=== PATIENT | male | born 1945 | race Caucasian/White ===

== ENCOUNTER 2016-07-06 13:14 | Observation (INO) | payer MEDICARE, OTHER ==
[2016-07-06] MEDS ORDERED: NS 1,000 ML IV ONE ×2 (13:18→14:20)
--- NOTE | 2016-07-06 13:23 | EDPRACDOC ---
- General Information Stated Complaint: ETOH,SI Time Seen by Provider: 07/06/16 13:17 Information Source: Patient, [employer] Officer Mode of Arrival: Ambulance Home Medications: Home Medications Atorvastatin [Lipitor 40 mg Tablet] 40 mg PO HS 09/13/13 Aspirin [Aspirin EC] 81 mg PO HS 08/09/15 Vitamins, [ Vitamin] 1 tab PO DAILY@1200 #30 tablet 04/30/16 Ipratropium/Albuterol Sulfate [Combivent Respimat Inhal [place]] 1 puff INH QID Citalopram (anti-depressant) [Celexa] 40 mg PO DAILY 06/13/16 Fluticasone/Vilanterol [Breo Ellipta 200-25 Mcg INH] 1 puff INH DAILY 06/13/16 CloNIDine (Antihypertensive) [Catapres] 0.1 mg PO TID #30 tab 06/24/16 Lorazepam [Ativan] 1 mg PO TID #10 tab 06/24/16 Ondansetron HCl [Zofran] 4 mg PO Q6H PRN #20 tab 06/24/16 Oxycodone Immediate Release [Oxy-Ir] 5 mg PO Q6H PRN #20 tab 06/28/16 Allergies/Adverse Reactions: Allergies Allergy/AdvReac Type Severity Reaction Status Date / Time No Known Allergies Allergy Verified 07/06/16 14:20 - History of Present Illness Onset: days HPI: PT HAS A HX OF ETOH ABUSE AND HAS BEEN HERE MANY TIMES FOR THAT. PT HAS BEEN DRINKING AGAIN AND FEELS SUICIDAL. PT WAS HERE YESTERDAY FOR HYPOTENSION. HE RECEIVED 1.5L OF IVFS AND BP IMPROVED. PT ALSO HAS BEEN NEWLY DX'D WITH LUNG CANCER AND IS NOT A SURGICAL CANDIDATE. [facility] HAS TRIED TO GET PT TO STOP DRINKING, BUT HAS BEEN UNSUCCESSFUL. Reason for Seeking Treatment: 911 Call Presents With: Reports: Depression, Suicidal Ideation Expresses: Reports: None Suicidal Plan: Reports: None Relevant History: Reports: Depression, Suicidal Attempt, Inpatient Treatment, Outpatient Treatment Medication Compliance: No Tetanus Up To Date?: Yes Able to Control Self: No Associated Signs and Symptoms: Reports: Depression, ETOH ED Past Medical History - Patient Medical History Cardiac History: Reports: Cardiac Catheterization (NORMAL ), Hypercholesterolemia. Denies: Hypertension Respiratory History: Reports: COPD, Pneumonia, Emphysema Psychological History: Reports: Depression, Anxiety, Bipolar Disorder (PER HISTORY), Substance Use Disorder (Alcoholic, INTENTIONAL OD) Systemic History: Reports: Cancer (Lung) Surgical History: Reports: Cholecystectomy (1985), Cardiac Catheterization ( NORMAL ), Tonsillectomy/Adnoidectomy - Family Medical History Reports: Cancer (FATHER-PROSTATE), Cardiac Disorders (FATHER). Denies: Hypertension, Diabetes, Stroke - Social Medical History Smoking Status: Heavy tobacco smoker (5 or more cigarettes/day or daily pipe/ cigar) Social History: Reports: Substance Use Disorder (Alcoholic, INTENTIONAL OD) ETOH: Alcoholic Substance Abuse: None Lives In: Home EDM Review of Systems - Review of Systems ROS Negative Except as Marked: Yes All systems reviewed and were negative except as marked Psychiatric: Depression, Suicidal - Physical Exam Constitutional: No apparent distress, Alert (Awake), ETOH Oriented to: Time, Person, Place Last recorded Vital Signs: Oxygen Pulse Oxygen Saturation O2 Device Oxygen Flow Rate Fraction of Inspired Oxygen ( FIO2) - HEENT Head: Normal ( normocephalic) Eye Exam: Normal (PERRL, EOMI, Sclera white) Oropharynx: Normal (Pharynx:Moist without exudate,Gums-no swelling) ENT EAC: Normal TMJ: Normal Nose: No Symptoms Reported (septum midline) Neck: Normal (FROM, trachea at midline) - Respiratory/Cardiovascular Respiratory: Normal - CTA (BBS clear to auscultation without adventitious sounds ) Cardiovascular: Normal (RRR without murmur, gallop or rub) - GI Auscultation: Normal (NABS) Palpation: Normal (Soft,No rebound or guarding, non distended) Tenderness: Non tender Gunn's Sign: Negative - Musculoskeletal Back: Normal (Non-Tender) Extremities: Normal (Normal tone, Pulses 2+ No cyanosis or edema, FROM) - Integumentary Skin: Normal, Warm, Dry Lymphatics: Normal (no adenopathy) - Neurologic Memory Impaired: Normal Motor Function: Normal (Normal tone, Pulses 2+ No cyanosis or edema, FROM) Cranial Nerve: Normal (CN II-X11 intact sensation, strength 5/5) Cerebellar: Normal Mood Description: Normal Perception: Normal Initial Evaluation Apperance: Unshaven, Underweight, Stated Age Attitude: Cooperative Mood: Sad Affect: Congruent w/ mood, Depressed Insight: Good Judgement: Good Depressive Symptoms: Reports: Crying episodes, Hopelessness, Sadness - Re-evaluation Re-evaluation 1 Re-evaluation Time: 14:36 (improved) - Results 07/06/16 13:40 07/06/16 13:40 - EKG EKG #1 EKG Time: 15:10 -: Yes EKG interpreted by me Rate: bpm: 71 [place]: Normal Rhythm: NSR Block: None Hypertrophy: None ST: Normal - Departure Yes I personally saw and evaluated the patient. Disposition: Admit to Condition: Fair Final Diagnosis: ETOH abuse, MDD (major depressive disorder), Suicidal ideation, Hypotension Education/Counseling Given To: Patient Education/Counseling Given Regarding: Diagnosis, Treatment, Follow Up Referrals: None,No Provider [Primary Care Provider] - One Week
[2016-07-06 13:32] VITALS: BMI 17.9
[2016-07-06 13:51] LABS: AUTOMATED BASOPHIL 0.5 % (0-2); AUTOMATED EOSINOPHIL 2.7 % (0-5); AUTOMATED LYMPH 8.3 % (17-44); AUTOMATED MONOCYTE 11.3 % (3-10); AUTOMATED NEUTROPHIL 77.2 % (45-76); MPV 6.8 fL (7.4-10.4)
--- NOTE | 2016-07-06 14:00 | DIRPT ---
CLINICAL DATA: Hypotension. EXAM: PORTABLE CHEST 1 VIEW COMPARISON: June 27, 2016. FINDINGS: Normal cardiac size. No pneumothorax or pleural effusion is noted. Minimal bibasilar subsegmental atelectasis or scarring is noted. Continued presence of left lower lobe mass is noted concerning for malignancy. Bony thorax is unremarkable. IMPRESSION: Minimal bibasilar subsegmental atelectasis or scarring. Continued presence of left lower lobe mass concerning for malignancy. Electronically Signed By: Oswald Salgado Jr, M.D. On: 07/06/2016 13:57
[2016-07-06 14:03] LABS: PARTIAL THROMB. TIME 29.4 SEC (22-35)
[2016-07-06 14:04] LABS: BLOOD UREA NITROGEN 9 MG/DL (9-20); CALC CORRECTED 9.3 MG/DL (8.4-10.2); CALCIUM 8.1 MG/DL (8.4-10.2); CALCULATED OSMOLALITY 275 MOs/Kg (270-290); CHLORIDE 106 mEq/L (98-107); GLUCOSE 114 MG/DL (70-99); SODIUM LEVEL 143 mEq/L (137-146)
[2016-07-06] MEDS ORDERED: GUAIFENESIN 200 MG/10 ML UDC PO PRN (14:40)
[2016-07-06] MEDS ORDERED: ACETAMINOPHEN 325 MG/TAB TABLET PO PRN (14:40)
[2016-07-06] MEDS ORDERED: ONDANSETRON HCL 4 MG ODT TAB PO PRN (14:40)
[2016-07-06] MEDS ORDERED: MAGNESIUM HYDROXIDE 30 ML BOTTLE PO PRN (14:40)
[2016-07-06] MEDS ORDERED: Docusate Sodium 100 MG CAP PO PRN (14:40)
[2016-07-06] MEDS ORDERED: DICYCLOMINE 20 MG TAB PO PRN (14:41)
[2016-07-06] MEDS ORDERED: LORAZEPAM 2 MG/ML VIAL IV PRN ×3 (14:41)
[2016-07-06] MEDS ORDERED: LORAZEPAM 1 MG TAB PO PRN ×3 (14:41)
[2016-07-06] MEDS ORDERED: Alcohol Withdrawal Scale Orders XX SCH (15:00)
[2016-07-06] MEDS ORDERED: NICOTINE 21 MG PATCH TOP SCH (15:00)
[2016-07-06] MEDS ORDERED: ALBUTEROL SULFATE INH SCH (16:00)
[2016-07-06] MEDS ORDERED: [UNRECOGNIZED DRUG - OTHER] INH SCH (16:00)
[2016-07-06] MEDS ORDERED: IPRATROPIUM INH SCH (16:00)
[2016-07-06] MEDS: Albuterol/Ipratropium Neb 3 ML NEB NEB SCH (20:00)
[2016-07-06 20:06] LABS: ALL NEG? NO
[2016-07-06 20:21] LABS: MDMA* NEG (NEGATIVE); METHAMPHETAMINES NEG (NEGATIVE); OXYCODONE NEG (NEGATIVE)
[2016-07-06 20:23] LABS: LEUKOCYTES/URINE NEG (NEGATIVE); NITRITE/URINE NEG (NEGATIVE); RBC/URINE 0-2 (0-2); URINE OCCULT BLOOD NEG (NEG/TRACE); WBC/URINE 0-2 (0-2)
[2016-07-06] MEDS ORDERED: ATORVASTATIN 40 MG TAB PO SCH (21:00)
[2016-07-07] MEDS: Albuterol/Ipratropium Neb 3 ML NEB NEB SCH ×3 (02:59→14:30)
[2016-07-07] MEDS ORDERED: BUDESONIDE 0.5 MG NEB NEB SCH (08:00)
[2016-07-07] MEDS ORDERED: Non-Formulary Medication ITEM (Fluticasone/Vilanterol [Breo Ellipta 200-25 Mcg Inh] 1 PU INH SCH (09:00)
[2016-07-07] MEDS ORDERED: Citalopram HBr 40 MG TABLET PO SCH (09:00)
[2016-07-07] MEDS ORDERED: CHLORDIAZEPOXIDE 25 MG CAP PO SCH (10:00)
--- NOTE | 2016-07-07 10:13 | EDTUNOTE ---
Initial Evaluation Apperance: Unshaven, Underweight, Stated Age Attitude: Cooperative Mood: Sad Affect: Congruent w/ mood, Depressed Insight: Good Judgement: Good Depressive Symptoms: Reports: Crying episodes, Hopelessness, Sadness - SOAP Note Patient Problems: Active Problems ETOH abuse (Acute) F10.10 Hypotension (Acute) I95.9 MDD (major depressive disorder) (Acute) F32.9 Suicidal ideation (Acute) R45.851 SOAP Note: BRIEF HX: PT HAS A HX OF ETOH ABUSE AND HAS BEEN HERE MANY TIMES FOR THAT. PT HAS BEEN DRINKING AGAIN AND FEELS SUICIDAL. PT WAS HERE YESTERDAY FOR HYPOTENSION. HE RECEIVED 1.5L OF IVFS AND BP IMPROVED. PT ALSO HAS BEEN NEWLY DX'D WITH LUNG CANCER AND IS NOT A SURGICAL CANDIDATE. SW AT [facility] HAS TRIED TO GET PT TO STOP DRINKING, BUT HAS BEEN UNSUCCESSFUL. S: PT WHO IS CHRONIC ALCOHOLIC PRESENTED TO ED WITH ACUTE INTOXICATION AND SUICIDAL IDEATIONS. HAS NO C/O THIS AM. O: VSS BP 145 SYSTOLIC, AFEBRILE CTAB/RRR CALM AND COOPERATIVE A: SUICIDAL IDEATIONS ACUTE ON CHRONIC ALCOHOL INTOXICATION. P: CONT OBS/MED/PSYCH MANAGEMENT UNTIL PROPER DISPOSITION CAN BE DETERMINED. PT WAS STARTED ON LIBRIUM TAPER THIS AM.
[2016-07-07] MEDS: CHLORDIAZEPOXIDE 25 MG CAP PO SCH ×2 (10:46→15:57)
--- NOTE | 2016-07-07 10:52 | TUDEPART ---
Disposition: Home Condition: Fair Instructions: Abuse of Alcohol (ED) Education/Counseling Given To: Patient Education/Counseling Given Regarding: Diagnosis, Treatment, Prognosis, Follow Up Follow-up / Referrals: None,No Provider [Primary Care Provider] - One Week Care Course/Plan/Goals: OUT PATIENT DETOX FOR ALCOHOL ABUSE. - Physical Exam Constitutional: No apparent distress, Alert (Awake), ETOH Oriented to: Time, Person, Place Last recorded Vital Signs: Last Vital Signs Temp 97.9 F 07/07/16 07:40 Pulse 79 07/07/16 07:40 Resp 18 07/07/16 07:40 BP 145/84 07/07/16 07:40 Pulse Ox 93 07/07/16 07:40 Oxygen Pulse Oxygen Saturation 93 O2 Device Oxygen Flow Rate Fraction of Inspired Oxygen ( FIO2) - HEENT Head: Normal ( normocephalic) Eye Exam: Normal (PERRL, EOMI, Sclera white) Oropharynx: Normal (Pharynx:Moist without exudate,Gums-no swelling) ENT EAC: Normal TMJ: Normal Nose: No Symptoms Reported (septum midline) - Respiratory/Cardiovascular Respiratory: Normal - CTA (BBS clear to auscultation without adventitious sounds ) Cardiovascular: Normal (RRR without murmur, gallop or rub) - GI Auscultation: Normal (NABS) Palpation: Normal (Soft,No rebound or guarding, non distended) Tenderness: Non tender Gunn's Sign: Negative - Musculoskeletal Back: Normal (Non-Tender) Extremities: Normal (Normal tone, Pulses 2+ No cyanosis or edema, FROM) - Integumentary Skin: Normal, Warm, Dry Lymphatics: Normal (no adenopathy) - Neurologic Memory Impaired: Normal Motor Function: Normal (Normal tone, Pulses 2+ No cyanosis or edema, FROM) Cranial Nerve: Normal (CN II-X11 intact sensation, strength 5/5) Cerebellar: Normal Mood Description: Normal Perception: Normal Other Exam Findings: PT DENIES SUICIDAL IDEATIONS THIS AM AND PER TA DOES NOT MEET IVC CRITERIA AT THIS TIME.
[2016-07-07] MEDS ORDERED: VITAMINS,PRENATAL TABLET PO SCH (12:00)
[2016-07-07] MEDS ORDERED: THIAMINE 100 MG TAB PO SCH (12:00)
[2016-07-07 16:09] VITALS: BP 119/69; PULSE 66; TEMP 97.9
[2016-07-08] MEDS ORDERED: CHLORDIAZEPOXIDE 25 MG CAP PO SCH (10:00)
== END 2016-07-07 16:00 | disposition home or self-care (01) ==
LOC: ED 13:14 → EDINP 14:40 → TUOBSINP 07-07 07:43
PROVIDERS: ADMIT Emergency Medicine; ATTEND Emergency Medicine
DX: F10.20 Alcohol dependence, uncomplicated (principal); Y90.9 Presence of alcohol in blood, level not specified; F17.210 Nicotine dependence, cigarettes, uncomplicated; C34.90 Malignant neoplasm of unspecified part of unspecified bronchus or lung; I95.9 Hypotension, unspecified; F32.9 Major depressive disorder, single episode, unspecified; R45.851 Suicidal ideations
CPT/HCPCS: 36415; 71010; 80053; 81001; 84484; 85025; 85610; 85730; 93005; 94640; 96360; 96361; 99283; A9270; G0378; G0479; J7620; 80301; 80320; J3490